=== PATIENT | male | born 1995 | race Two or more races ===

== ENCOUNTER 2020-06-15 13:46 | Observation (INO) | payer SELFPAY ==
[~2020-06-15] VITALS: Ht 165.1 cm; Wt 71.8 kg
[2020-06-15 13:54] VITALS: BP 102/80
[2020-06-15] MEDS ORDERED: LORazepam Inj 2mg/ml 1ml ONE (14:23)
[2020-06-15] MEDS ORDERED: Haloperidol 5mg/ml Inj ONE (14:24)
[2020-06-15] MEDS ORDERED: DiphenhydrAMINE 50mg/ml Inj ONE (14:25)
[2020-06-15] MEDS ORDERED: DiphenhydrAMINE 50mg/ml Inj IM ONE ×2 (14:30)
[2020-06-15] MEDS ORDERED: Haloperidol 5mg/ml Inj IM ONE ×2 (14:30)
[2020-06-15] MEDS ORDERED: LORazepam Inj 2mg/ml 1ml IM ONE (14:30)
[2020-06-15 15:00] VITALS: BP 105/50
[2020-06-15 15:11] LABS: BASOPHILS % (AUTO) 0.9 % (0.0-2.0); HEMATOCRIT 42.6 % (42.0-52.0); HEMOGLOBIN 14.8 G/DL (14.2-18.0); LYMPHOCYTES % (AUTO) 15.4 % (20.0-45.0); MEAN CORPUSCULAR VOLUME 88 FL (80-99); NEUTROPHILS % (AUTO) 76.7 % (45.0-75.0); PLATELET COUNT 201 K/UL (150-450); RED BLOOD COUNT 4.87 M/UL (4.70-6.10); RED CELL DISTRIBUTION WIDTH 11.5 % (11.6-14.8); WHITE BLOOD COUNT 14.2 K/UL (4.8-10.8)
[2020-06-15 15:23] LABS: ANION GAP 14 mmol/L (5-15); BLOOD UREA NITROGEN 30 mg/dL (7-18); CALCIUM 9.8 MG/DL (8.5-10.1); CARBON DIOXIDE 25 MMOL/L (21-32); CHLORIDE 106 MMOL/L (98-107); CREATININE 1.2 MG/DL (0.55-1.30); POTASSIUM 3.7 MMOL/L (3.5-5.1); SODIUM 145 MMOL/L (136-145)
--- NOTE | 2020-06-15 15:28 | Diagnostic Imaging Report ---
Indication: Altered mental status Technique: Continuous helical CT scanning of the head was performed utilizing automated exposure control without intravenous contrast material. Axial and coronal reconstructions were obtained. Comparison: None CT dose: Total DLP 1125.7 mGycm; CTDI vol 53.4 mGy Findings: There is no acute intracranial hemorrhage, mass effect or cortical edema. The ventricles, cisterns and sulci are in normal limits for reported age. Visualized mastoid air cells and paranasal sinuses are unremarkable. No focal lesions of the bony calvarium or soft tissues of the scalp are seen. Impression: No evidence of acute intracranial hemorrhage, mass effect or cortical edema. The CT scanner at [facility] is accredited by the [employer] and the scans are performed using protocols designed to limit radiation exposure to as low as reasonably achievable to attain images of sufficient resolution adequate for diagnostic evaluation.
[2020-06-15 15:33] LABS: ALANINE AMINOTRANSFERASE 256 U/L (12-78); ALBUMIN/GLOBULIN RATIO 1.9 (1.0-2.7); ALKALINE PHOSPHATASE 74 U/L (46-116); ASPARTATE AMINO TRANSFERASE 102 U/L (15-37); BILIRUBIN,TOTAL 1.1 MG/DL (0.2-1.0)
[2020-06-15 15:35] LABS: BILIRUBIN,DIRECT 0.3 MG/DL (0.0-0.3)
[2020-06-15 15:54] LABS: APPEARANCE,URINE SLIGHTLY CLOUDY; BILIRUBIN, URINE NEGATIVE (NEGATIVE); COLOR,URINE BROWN; GLUCOSE, URINE (UA) NEGATIVE (NEGATIVE); KETONES,URINE 3+ (NEGATIVE); LEUKOCYTE ESTERASE ,URINE 2+ (NEGATIVE); NITRITE,URINE NEGATIVE (NEGATIVE); PH,URINE 5 (4.5-8.0); PROTEIN,URINE 2+ (NEGATIVE); UROBILINOGEN,URINE 1 MG/DL (0.0-1.0)
[2020-06-15] MEDS ORDERED: cefTRIAXone 1 GM in NS 55 ML IVPB ONE (16:15)
--- NOTE | 2020-06-15 18:08 | Emergency Room Report ---
History of Present Illness General Chief Complaint: Substance Abuse Present Illness HPI 36-year-old male with no known significant past medical history under the influence of unknown substance with a possible underlying psychiatric disorder brought in by paramedics due to running naked in the street. Patient has aggressive and has restraints performed. Patient is a poor historian unable to assess any medical history. Appears to be slightly tachycardic upon arrival. After administration of Haldol, Ativan, Benadryl patient stated calming down and heart rate within normal limits. (Nancy Saavedra) Allergies: Coded Allergies: UNABLE TO ASSESS (Unverified , 06/15/20) COVID-19 Screening COVID-19 risk:Contact w/high r: No Has patient experienced ruiz: No COVID-19 Testing performed FIELD ATTENDANT: No (Nancy Saavedra) Patient History Past Medical History: see triage record Past Surgical History: unable to obtain Family History: unable to obtain Reviewed Nursing Documentation: PMH: Agreed; PSxH: Agreed (Nancy Saavedra) Nursing Documentation-PMH Past Medical History Deferred: Pt Cognitively Impaired (Nancy Saavedra) Review of Systems All Other Systems: negative except mentioned in HPI (Nancy Saavedra) Physical Exam Vital Signs Date Time Temp Pulse Resp B/P (MAP) Pulse Ox O2 Delivery O2 Flow Rate FiO2 06/15/20 13:47 97.9 116 16 102/80 (87) 95 Room Air Sp02 EP Interpretation: reviewed, abnormal - Elevated heart rate General Appearance: alert/responsive, no apparent distress, GCS 15, non-toxic Head: atraumatic Eyes: PERRL, lids + conjunctiva normal ENT: hearing intact, no angioedema Neck: supple/symm/no masses, no meningismus Respiratory: effort normal, no wheezing, chest symmetrical Cardiovascular: regular rate, rhythm, no edema Gastrointestinal: non-tender, no mass, non-distended, no rebound/guarding, normal bowel sounds Musculoskeletal: normal ROM Neurologic: sensory intact, normal speech Psychiatric: other - Appears to be under the influence of a stimulant Skin: no rash Lymphatic: normal inspection (Nancy Saavedra) Medical Decision Making PA Attestation All my diagnosis and treatment plans were reviewed ad discussed with my supervising physician Dr. Underwood (Nancy Saavedra) Diagnostic Impression: Primary Impression: Methamphetamine abuse Additional Impressions: Benzodiazepine abuse Tetrahydrocannabinol (THC) use disorder, mild, abuse UTI (urinary tract infection) Qualified Codes: N39.0 - Urinary tract infection, site not specified Ataxia Rhabdomyolysis Qualified Codes: M62.82 - Rhabdomyolysis Bradycardia ER Course 36-year-old male with no known significant past medical history under the influence of unknown substance with a possible underlying psychiatric disorder brought in by paramedics due to running naked in the street. Patient has aggressive and has restraints performed. Patient is a poor historian unable to assess any medical history. Appears to be slightly tachycardic upon arrival. After administration of Haldol, Ativan, Benadryl patient stated calming down and heart rate within normal limits. Ddx considered but are not limited to: Alcohol intoxication with altered level of consciousness, alcohol intoxication causing pancreatitis, alcohol abuse, multi drug use and alcohol intoxication, U use, cocaine abuse Vital signs: are WNL, pt. is afebrile H&PE are most consistent with: Methamphetamine abuse, THC abuse, benzodiazepine abuse, UTI ORDERS: Psychiatric order set, head CT no contrast ER intervention: Haldol, Ativan, Benadryl, Rocephin DISCHARGE: At this time pt. is stable for d/c to home. Will provide printed patient care instructions, and any necessary prescriptions. Care plan and follow up instructions have been discussed with the patient prior to discharge. (Nancy Saavedra) ER Course Please see above note. Patient signed out to me by Dr. Jha. The patient had received Versed, Ativan and Haldol. This morning he is awake and making his needs known. He has been evaluated by the psychiatrist. He received Rocephin for a urinary tract infection. Patient states he was born in [place]. He lives on the streets. He does not have family near. CK elevated but normal renal function. Patient still not able to ambulate. Admit observation. Laboratory Tests Test 06/15/20 14:20 06/15/20 15:30 White Blood Count 14.2 K/UL (4.8-10.8) H Red Blood Count 4.87 M/UL (4.70-6.10) Hemoglobin 14.8 G/DL (14.2-18.0) Hematocrit 42.6 % (42.0-52.0) Mean Corpuscular Volume 88 FL (80-99) Mean Corpuscular Hemoglobin 30.4 PG (27.0-31.0) Mean Corpuscular Hemoglobin Concent 34.8 G/DL (32.0-36.0) Red Cell Distribution Width 11.5 % (11.6-14.8) L Platelet Count 201 K/UL (150-450) Mean Platelet Volume 9.6 FL (6.5-10.1) Neutrophils (%) (Auto) 76.7 % (45.0-75.0) H Lymphocytes (%) (Auto) 15.4 % (20.0-45.0) L Monocytes (%) (Auto) 6.0 % (1.0-10.0) Eosinophils (%) (Auto) 1.0 % (0.0-3.0) Basophils (%) (Auto) 0.9 % (0.0-2.0) Sodium Level 145 MMOL/L (136-145) Potassium Level 3.7 MMOL/L (3.5-5.1) Chloride Level 106 MMOL/L (98-107) Carbon Dioxide Level 25 MMOL/L (21-32) Anion Gap 14 mmol/L (5-15) Blood Urea Nitrogen 30 mg/dL (7-18) H Creatinine 1.2 MG/DL (0.55-1.30) Estimated Glomerular Filtration Rate > 60 mL/min (>60) Glucose Level 77 MG/DL (74-106) Calcium Level 9.8 MG/DL (8.5-10.1) Total Bilirubin 1.1 MG/DL (0.2-1.0) H Direct Bilirubin 0.3 MG/DL (0.0-0.3) Aspartate Amino Transferase (AST) 102 U/L (15-37) H Alanine Aminotransferase (ALT) 256 U/L (12-78) H Alkaline Phosphatase 74 U/L (46-116) Total Creatine Kinase 1793 U/L (26-308) H Total Protein 7.7 G/DL (6.4-8.2) Albumin 5.0 G/DL (3.4-5.0) Globulin 2.7 g/dL Albumin/Globulin Ratio 1.9 (1.0-2.7) Salicylates Level < 0.2 ug/mL (2.8-20) L Acetaminophen Level < 2 MCG/ML (10-30) L Serum Alcohol < 3 mg/dL Urine Color Brown Urine Appearance Slightly cloudy Urine pH 5 (4.5-8.0) Urine Specific [place] 1.025 (1.005-1.035) Urine Protein 2+ (NEGATIVE) H Urine Glucose (UA) Negative (NEGATIVE) Urine Ketones 3+ (NEGATIVE) H Urine Blood 5+ (NEGATIVE) H Urine Nitrite Negative (NEGATIVE) Urine Bilirubin Negative (NEGATIVE) Urine Urobilinogen 1 MG/DL (0.0-1.0) H Urine Leukocyte Esterase 2+ (NEGATIVE) H Urine RBC Tntc /HPF (0 - 0) H Urine WBC Tntc /HPF (0 - 0) H Urine Squamous Epithelial Cells Occasional /LPF Urine Bacteria Moderate /HPF (NONE) H Urine Opiates Screen Negative (NEGATIVE) Urine Barbiturates Screen Negative (NEGATIVE) Phencyclidine (PCP) Screen Negative (NEGATIVE) Urine Amphetamines Screen Positive (NEGATIVE) H Urine Benzodiazepines Screen Positive (NEGATIVE) H Urine Cocaine Screen Negative (NEGATIVE) Urine Marijuana (THC) Screen Positive (NEGATIVE) H (Owen Gay MD) CT/MRI/US Diagnostic Results CT/MRI/US Diagnostic Results : Imaging Test Ordered: head ct no contrast Impression No intracranial bleed, no acute findings (Nancy Saavedra) Last Vital Signs Date Time Temp Pulse Resp B/P (MAP) Pulse Ox O2 Delivery O2 Flow Rate FiO2 06/15/20 13:54 97.9 116 16 102/80 95 Room Air (Nancy Saavedra) Last Vital Signs Date Time Temp Pulse Resp B/P (MAP) Pulse Ox O2 Delivery O2 Flow Rate FiO2 06/16/20 16:00 98.0 43 19 106/55 (72) 100 06/16/20 14:49 Room Air Status: improved (Owen Gay MD) Disposition: PLACE IN OBSERVATION Condition: Serious Scripts Cephalexin* (KEFLEX*) 500 Mg Capsule 500 MG ORAL EVERY 6 HOURS, #28 CAP Prov: Adan Jha MD 06/16/20 Referrals: NOT CHOSEN IPA/,REFERRING (PCP) Patient Instructions: Stimulant Use Disorder-Methamphetamines Nancy Saavedra Jun 15, 2020 18:08 Owen Gay MD Jun 16, 2020 06:45
[2020-06-15 18:12] VITALS: BP 103/55
[2020-06-15 19:10] VITALS: BP 102/68
--- NOTE | 2020-06-15 22:00 | Consultation ---
DATE OF CONSULTATION: 06/15/2020 CONSULTING PHYSICIAN: Jahaira Correia MD. HISTORY OF PRESENT ILLNESS: The patient is a 36-year-old black male with a history of unknown psychiatric illness who was brought in by [employer] and paramedics for a diagnosis of "delirium." The patient apparently was naked and was running in the street. He was confused and was unable to answer the questions. Upon arrival in the emergency room at [facility], the patient is confused and is unable to respond. During the evaluation, the patient was placed on restraints; however, was not having any behavior issues. He was just confused. Patient is being worked up for medical condition. Patient is not suicidal or homicidal. PAST PSYCHIATRY HISTORY: Patient is unable to provide any meaningful history. PAST MEDICAL HISTORY: Unknown. SUBSTANCE USE HISTORY: Unknown. Patient has been being worked up for urine toxicology. MENTAL STATUS EXAMINATION: Patient has waxing waning consciousness. Mood is neutral. Affect is flat. Thought process, there is a paucity of thought content. Thought content, no suicidal or homicidal ideation. Cognition is impaired. Insight and judgment is impaired. ASSESSMENT: Osburn I Acute encephalopathy, rule out substance-induced psychosis. Osburn II Deferred. Osburn III Unknown. Osburn IV Homelessness. Osburn V 20 to 40. PLAN: 1. If patient's condition improved, patient can be discharged. Does not meet the criteria for 5150 danger to self or danger to others. 2. Patient will receive Haldol Decanoate for psychotic symptoms. Jahaira Correia M.D. DR: NI JOB#: [id number] CC:
[2020-06-15 22:15] VITALS: BP 99/68
[2020-06-16 02:00] VITALS: BP 95/65
[2020-06-16] MEDS ORDERED: Bacitracin Oint 15gm Tube TOPIC ONE ×2 (03:00)
[2020-06-16 04:00] VITALS: BP 95/62
[2020-06-16] MEDS ORDERED: CEPHALEXIN500 MG ORAL (04:06)
[2020-06-16] MEDS ORDERED: Haloperidol Decanoate (Long Acting) 50mg Inj IM ONE (05:15)
[2020-06-16 05:30] VITALS: BP 102/54
[2020-06-16 08:06] LABS: CREATINE KINASE 1793 U/L (26-308)
[2020-06-16 09:00] VITALS: BP 111/61
[2020-06-16 16:00] VITALS: BP 106/55
--- NOTE | 2020-06-16 17:42 | History and Physical ---
History of Present Illness General Date patient seen: Jun 16, 2020 Time patient seen: 17:29 Reason for Hospitalization: Substance Abuse Present Illness HPI 25 year old male who is a poor historian presents with running in the street naked suspected from methamphetamine abuse. Patient is difficult to arouse because of Haldol and benzodiazepine administer in the ED. He sates he has no pain, fever or any other symptoms. He states he just wants to sleep. He has no SI or HI. Will not tell me where he lives. States he has no medical problems. Allergies: Coded Allergies: UNABLE TO ASSESS (Unverified , 06/15/20) COVID-19 Screening Contact w/high risk pt: No Experienced COVID-19 symptoms?: No Medication History Scheduled Cephalexin* (Keflex*), 500 MG ORAL EVERY 6 HOURS Patient History Limited by: medical condition Healthcare decision maker Resuscitation status full Advanced Directive on File Past Medical/Surgical History Past Medical/Surgical History: (1) Tetrahydrocannabinol (THC) use disorder, mild, abuse Family History Family History: FH: CAD (coronary artery disease) Social History Social History: (1) Tetrahydrocannabinol (THC) use disorder, mild, abuse (2) Benzodiazepine abuse (3) Methamphetamine abuse Review of Systems Eye: Reports: no symptoms ENT: Reports: no symptoms Respiratory: Reports: no symptoms Cardiovascular: Reports: no symptoms Gastrointestinal: Reports: no symptoms Genitourinary: Denies: discharge, dysuria, frequency, hematuria, retention, incontinence Musculoskeletal: Reports: no symptoms Skin: Reports: no symptoms Psychiatric: Reports: see HPI, emotional problems, hallucinations; Denies: SI, HI Neurological: Reports: no symptoms Endocrine: Reports: no symptoms Hematologic/Lymphatic: Reports: no symptoms ROS Narrative poor historian Physical Exam General Appearance: no apparent distress, lethargic, agitated, thin Lines, tubes and drains: peripheral HEENT: normocephalic, atraumatic Neck: normal alignment, supple, normal inspection Respiratory/Chest: chest wall non-tender, lungs clear, normal breath sounds, no respiratory distress Cardiovascular/Chest: normal peripheral pulses, normal rate, regular rhythm, no gallop/murmur, no JVD Abdomen: non tender, soft, no organomegaly, no mass Neurologic: responsive, disoriented, depressed affect Last 24 Hour Vital Signs Date Time Temp Pulse Resp B/P (MAP) Pulse Ox O2 Delivery O2 Flow Rate FiO2 06/16/20 14:49 Room Air 06/16/20 14:45 Room Air 06/16/20 13:47 97.5 62 18 106/63 99 Room Air 06/16/20 09:00 98.0 63 16 111/61 100 Room Air 06/16/20 05:30 97.3 55 14 102/54 100 Room Air 06/16/20 04:00 97.3 55 15 95/62 100 Room Air 06/16/20 02:00 97.9 60 14 95/65 99 Room Air 06/15/20 22:15 97.9 74 14 99/68 100 Room Air 06/15/20 19:10 97.9 68 13 102/68 100 Room Air 06/15/20 18:12 97.9 66 15 103/55 97 Room Air Intake and Output 06/15/20 06/16/20 19:00 07:00 Intake Total 55 ml Balance 55 ml Intake IV Total 55 ml Height (Feet): 5 Height (Inches): 5.00 Weight (Pounds): 160 Assessment/Plan Problem List: (1) Rhabdomyolysis ICD Codes: M62.82 - Rhabdomyolysis SNOMED: 533981511 (2) UTI (urinary tract infection) ICD Codes: N39.0 - Urinary tract infection, site not specified SNOMED: 80272727, 33126736 (3) Methamphetamine abuse ICD Codes: F15.10 - Other stimulant abuse, uncomplicated SNOMED: 196069844, 22120522 (4) Tetrahydrocannabinol (THC) use disorder, mild, abuse ICD Codes: F12.10 - Cannabis abuse, uncomplicated SNOMED: 73180531, 50007580 (5) Benzodiazepine abuse ICD Codes: F13.10 - Sedative, hypnotic or anxiolytic abuse, uncomplicated SNOMED: 190777188, 368012465 Assessment/Plan: 25 year old male with no significant PMH presents with AMS due to methamphetamine abuse. #AMS #Poly substance abuse -Given Haldol and benzodiazepines in ED -Cardiac monitoring -Fluid hydration -Psych consult -SS consult #UTI #Rhabdomyolysis - Aggressive fluid hydration - Ceftriaxone 1gm q24 hours - Follow cultures - Trend CK - Consider nephro consult I spent 76 min on this admission due to patient counseling and patient cooperation. I coordinated with RN and consultants. Ry Zepeda M.D. 4, 2020 17:42
[2020-06-16] MEDS ORDERED: DiphenhydrAMINE 50mg/ml Inj IVP PRN (17:45)
[2020-06-16] MEDS: LR 1000ml 1,000 ML IV SCH (19:26)
[2020-06-16 20:00] VITALS: BP 103/51
[2020-06-17] VITALS: BP 105/47
[2020-06-17] MEDS: LR 1000ml 1,000 ML IV SCH (03:00)
[2020-06-17 07:27] LABS: ALANINE AMINOTRANSFERASE 248 U/L (12-78); ALBUMIN 3.3 G/DL (3.4-5.0); ALBUMIN/GLOBULIN RATIO 1.3 (1.0-2.7); ALKALINE PHOSPHATASE 55 U/L (46-116); ANION GAP 6 mmol/L (5-15); ASPARTATE AMINO TRANSFERASE 137 U/L (15-37); BILIRUBIN,TOTAL 0.9 MG/DL (0.2-1.0); BLOOD UREA NITROGEN 17 mg/dL (7-18); CARBON DIOXIDE 26 MMOL/L (21-32); CHLORIDE 108 MMOL/L (98-107); CREATINE KINASE 1500 U/L (26-308); CREATININE 0.8 MG/DL (0.55-1.30); POTASSIUM 3.8 MMOL/L (3.5-5.1); SODIUM 140 MMOL/L (136-145)
[2020-06-17 07:29] LABS: BASOPHILS % (AUTO) 1.1 % (0.0-2.0); EOSINOPHILS % (AUTO) 5.2 % (0.0-3.0); HEMATOCRIT 42.8 % (42.0-52.0); HEMOGLOBIN 14.2 G/DL (14.2-18.0); LYMPHOCYTES % (AUTO) 38.6 % (20.0-45.0); MEAN CORPUSCULAR VOLUME 90 FL (80-99); MONOCYTES % (AUTO) 8.2 % (1.0-10.0); PLATELET COUNT 165 K/UL (150-450); RED BLOOD COUNT 4.77 M/UL (4.70-6.10); RED CELL DISTRIBUTION WIDTH 11.6 % (11.6-14.8)
[2020-06-17 08:00] VITALS: BP 103/49
--- NOTE | 2020-06-17 11:09 | Discharge Instructions ---
Discharge Instructions Discharge Instructions Call MD/Return to Hospital if: for sucidal ideation, low urine output Activity: light activity For Congestive Heart Failure Reminder Report to your physician any weight gain of 5 pounds or more in one week. Ry Zepeda M.D. Jun 17, 2020 11:09
--- NOTE | 2020-06-17 11:14 | Discharge Summary ---
Discharge Summary Hospital Course Date of Admission Jun 16, 2020 at 11:30 Date of Discharge 06/17 Admitting Diagnosis ATAXIA HPI 25 year old male who is a poor historian presents with running in the street naked suspected from methamphetamine abuse. Patient is difficult to arouse because of Haldol and benzodiazepine administer in the ED. He sates he has no pain, fever or any other symptoms. He states he just wants to sleep. He has no SI or HI. Will not tell me where he lives. States he has no medical problems. Consultations Social work Hospital Course 25 year old male with no significant PMH presents with AMS due to methamphetamine abuse. Patient is demanding to leave and denying to be seen by psych. He has no SI or HI. Social work met with him and gave him resources. Prescriptions given in hand and follow up with psych arranged. #AMS #Poly substance abuse -Given Haldol and benzodiazepines in ED -Cardiac monitoring -Fluid hydration -Psych consult -SS consult #UTI - will continue Keflex #Rhabdomyolysis - improved with fluids - Aggressive fluid hydration - Ceftriaxone 1gm q24 hours - Follow cultures - Trend CK - Consider nephro consult I spent 30 min on this icharge Discharge Medications Continued Medications: Cephalexin* (Keflex*) 500 Mg Capsule 500 MG ORAL EVERY 6 HOURS, #28 CAP Discharge Condition Upon Discharge: stable Discharge Vital Signs Last Vital Signs Date Time Temp Pulse Resp B/P (MAP) Pulse Ox O2 Delivery O2 Flow Rate FiO2 06/17/20 09:00 Room Air 06/17/20 08:00 98.2 58 16 103/49 (67) 100 Discharge Disposition Patient was discharged to Discharge Diagnoses: (1) Methamphetamine abuse (2) Benzodiazepine abuse (3) Tetrahydrocannabinol (THC) use disorder, mild, abuse (4) Rhabdomyolysis Discharge Instructions Discharge Instructions Call MD/Return to Hospital if: for sucidal ideation, low urine output Activity: light activity Ry Zepeda M.D. Jun 17, 2020 11:14
[2020-06-17 12:00] VITALS: BP 113/50
[2020-06-17] MEDS ORDERED: cefTRIAXone 1gm/D5W 55ml IVPB SCH ×2 (17:00)
== END 2020-06-17 17:22 | disposition home or self-care (01) ==
LOC: EDBD 13:46 → EMR 13:58 → EDBD 13:58 → 4E 06-16 11:30 → EDBEDREQ 06-16 13:29
DX: F15.10 Other stimulant abuse, uncomplicated (principal); F13.20 Sedative, hypnotic or anxiolytic dependence, uncomplicated; F12.10 Cannabis abuse, uncomplicated; M62.82 Rhabdomyolysis; N39.0 Urinary tract infection, site not specified; G93.40 Encephalopathy, unspecified; Z59.0 Homelessness; R00.0 Tachycardia, unspecified
CPT/HCPCS: 36415; 70450; 80053; 80307; 81003; 82248; 82550; 85025; 87086; 93005; 96361; 96365; 96372; 97161; 99284; G0378; G0480; J0696; J1200; J1630; J1631; J7030; J7120